=== PATIENT | female | born 1995 | race African-American/Black ===

== ENCOUNTER 2019-11-03 17:27 | Emergency (ER) | payer MEDICAID ==
[~2019-11-03] VITALS: Ht 165.1 cm; Wt 58.0 kg
[2019-11-03 19:53] VITALS: BP 107/64
== END 2019-11-03 19:57 | disposition home or self-care (01) ==
LOC: ER 17:27
DX: G24.5 Blepharospasm (principal)
CPT/HCPCS: 99283

== ENCOUNTER 2023-03-21 04:55 | Emergency (ER) | payer MEDICAID, OTHER ==
[~2023-03-21] VITALS: Ht 167.6 cm; Wt 90.0 kg
[2023-03-21 05:00] VITALS: TEMP 97.9; O2SAT 99
[2023-03-21 08:30] VITALS: BP 126/84; PULSE 81; RESP 16
[2023-03-21] MEDS ORDERED: TETANUS, DIPHTHERIA, PERTUSSIS VAC/PF 0.5ML (>10YR OLD) IM ONE (08:30)
[2023-03-21] MEDS ORDERED: IBUPROFEN 600MG TABLET PO ONE (08:30)
[2023-03-21] MEDS ORDERED: ACETAMINOPHEN 325MG TABLET PO ONE (11:30)
== END 2023-03-21 12:05 | disposition home or self-care (01) ==
LOC: ER 05:19
DX: S80.211A Abrasion, right knee, initial encounter (principal); W01.0XXA Fall on same level from slipping, tripping and stumbling without subsequent striking against object, initial encounter; Y93.89 Activity, other specified; Y92.89 Other specified places as the place of occurrence of the external cause; Y99.8 Other external cause status
CPT/HCPCS: 73610; 73630; 90471; 90715; 99284